=== PATIENT | male | born 1975 | race Caucasian/White ===

== ENCOUNTER → 2016-04-17 | Day surgery (SDC) | payer OTHER ==
[~2016-04-17] MED LIST: ACETAMINOPHEN PO; ASPIRIN81 M2 PO; ATIVAN PO; AUGMENTIN875 MG PO; BACTRIM DS TABL1 TA1 PO; CALTRATE PLUS T1 TA1 PO; CIPRO PO; CITRACAL + D CA1 TA1 PO; DICLOFENAC PO; DITROPAN PO; DITROPAN5 MG PO; EXCEDRIN EXTRA1 TAB PO; FLEXERIL10 M1 PO; FLEXERIL10 MG PO; FLOMAX0.4 M1 PO; HYDROCODON-ACE1 EACH PO; LORTAB 5-325 M1 EACH PO; LORTAB 5/500 TA1 TA1 PO; NO MEDICATIONS; OMEPRAZOLE20 M2 PO; OXECTA7.5 MG PO; PERCOCET 5-3251 TAB PO; PERCOCET5/325 PO; PHENERGAN PO; PHENERGAN PR; PHENERGAN25 M1 PO; PHENERGAN25 MG PO; PYRIDIUM PO; PYRIDIUM100 MG PO; TRAMADOL HCL50 M1 PO; ULTRAM PO; UROCIT K PO; VENLAFAXINE H37.5 MG PO; VICODIN 5/1 TAB 5/50 PO; VICODIN ES 7.51 EACH PO; VOLTAREN75 MG PO
--- NOTE | ~2016-04-17 | OR ---
Unit #: [id number] #: [id number] Patient: QUINCY CONNER [id number] [address] [address] [id number] O MR#: [id number] NAME: QUINCY CONNER. ROOM: Date of Procedure: 04/17/2016 Admission Date: 04/17/2016 Surgeon: William Grant M.D. : 1975 Attending Physician: William Grant M.D. Primary Care Physician: Sarah Alvarado M.D. OPERATIVE REPORT PREOPERATIVE DIAGNOSIS Right inguinal hernia. POSTOPERATIVE DIAGNOSIS Incarcerated indirect right inguinal hernia. PROCEDURE PERFORMED Laparoscopic inguinal hernia repair of incarcerated indirect right inguinal hernia. 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 ANESTHESIA General endotracheal anesthesia. ESTIMATED BLOOD LOSS Minimal. IV FLUIDS 800 crystalloid. COMPLICATIONS None. INDICATIONS FOR PROCEDURE The patient is a 41-year-old with right inguinal hernia. DESCRIPTION OF PROCEDURE The patient was taken to the operative theater and placed in supine position. General anesthesia was induced. The abdomen was prepped and draped. Infraumbilical incision was then made. A small incision was made on the anterior sheath, created a preperitoneal space with blunt dissection. A Veress needle was placed intra-abdominally. The abdomen was insufflated to 15 mmHg with CO2. Under direct vision, I placed a 5-mm port. The patient was placed in Trendelenburg. I identified an incarcerated right indirect inguinal hernia. This was reduced with gentle external manipulation. I did not see a left-sided hernia. I then released the pneumoperitoneum. Using the AutoSuture balloon dissection system, I created the preperitoneal space in the right side only. I placed two 5-mm ports in the midline. I dissected the right groin, identifying the lateral space. The cord was skeletonized. The hernia sac Unit #: [id number] #: [id number] Patient: QUINCY CONNER from the cord contents, transected and an Endoloop placed along the proximal sac and the hernia reduced. I identified David's ligament. I placed a large 3DMax into position. This was held in place with a tacking device to David ligament as well as lateral anterior musculature. This covered the direct and indirect spaces nicely. Hemostasis was adequate. I released the pneumopreperitoneum with care taken to avoid the peritoneum sliding posterior to the mesh. I then removed the ports. The fascia was closed with 0 Vicryl and skin with 4-0 Vicryl. The patient tolerated the procedure well and sent to the recovery room in good condition. Dictated by... Popeye Morales/alexis TD: 04/18/2016 05:03 JOB #: [id number] OPERATIVE REPORT X William Grant MD X PROCEDURE OPERATIVE NOTE
== END | disposition home or self-care (01) ==
LOC: CSUR 06:59
DX: K40.30 Unilateral inguinal hernia, with obstruction, without gangrene, not specified as recurrent (principal); K21.9 Gastro-esophageal reflux disease without esophagitis; F17.210 Nicotine dependence, cigarettes, uncomplicated; Z87.442 Personal history of urinary calculi; Z88.8 Allergy status to other drugs, medicaments and biological substances; Z79.82 Long term (current) use of aspirin; Z79.899 Other long term (current) drug therapy; Z98.890 Other specified postprocedural states
CPT/HCPCS: C1781; J0330; J0690; J1100; J1644; J2250; J2270; J2405; J3010

== ENCOUNTER 2016-05-11 15:08 | Emergency (ER) | payer OTHER ==
--- NOTE | ~2016-05-11 | EKG ---
PATIENT: QUINCY CONNER UNIT #: [id number] Ventricular Rate: 116 BPM Atrial Rate: 116 BPM P-R Interval: 122 ms QRS Duration: 70 ms Q-T Interval: 306 ms QTC Calculation(Bezet): 425 ms Calculated R Windsor: 43 degrees Calculated T Windsor: 42 degrees Diagnosis Line: Sinus tachycardia Diagnosis Line: Otherwise normal ECG Diagnosis Line: When compared with ECG of 21-AUG-2014 18:23, Diagnosis Line: No significant change was found Diagnosis Line: Confirmed by TIMOTHY BARRETT MD ([id number]) on Diagnosis Line: 06/08/2016 7:07:04 AM INTERPRETING MDKaci SY
[2016-05-11 15:01] LABS: BASOPHIL# 0.1 X10e3 (0-0.3); BASOPHIL% 1.4 % (0-2.5); EOSINOPHIL# 0.3 X10e3 (0-0.7); EOSINOPHIL% 2.8 % (0.0-7.0); HEMATOCRIT 40.3 % (38.0-50.0); HEMOGLOBIN 13.7 gm/dL (13.0-16.0); LYMPHOCYTE# 2.9 X10e3 (1.0-3.5); LYMPHOCYTE% 30.5 % (17.0-45.0); MEAN CELL VOLUME 95.2 FL (83-96); MEAN CORPUSCULAR HEMOGLOBIN 32.4 PG (28-34); MEAN PLATELET VOLUME 6.5 FL (6.5-11.5); MONOCYTE# 0.4 X10e3 (0-1.0); MONOCYTE% 4.3 % (3.0-12.0); NEUTROPHIL# 5.9 X10e3 (1.5-7.1); PLATELET COUNT 325 X10e3 (140-420); RED BLOOD COUNT 4.24 X10e (3.90-5.60); RED CELL DISTRIBUTION WIDTH 13.1 % (11.0-15.5); WHITE BLOOD COUNT 9.6 X10e3 (4.0-10.5)
[2016-05-11 15:03] LABS: DIFF IND NO
[~2016-05-11 15:08] MED LIST changes: -ATIVAN PO
[2016-05-11 15:17] LABS: ALBUMIN SERUM 4.4 g/dL (3.5-5.0); ALKALINE PHOSPHATASE 62 U/L (32-92); ALT (SGPT) 19 U/L (10-40); AST (SGOT) 36 U/L (10-42); BILIRUBIN, DIRECT 0.1 mg/dL (0.0-0.2); BILIRUBIN,INDIRECT 0.4 mg/dL (0.0-0.9); BILIRUBIN,TOTAL 0.5 mg/dL (0.2-2.0); BLOOD UREA NITROGEN 14 mg/dL (9-23); BUN/CREATININE RATIO 15.55; CARBON DIOXIDE 21 mmol/L (22-31); CHLORIDE 99 mmol/L (100-111); CREATININE SERUM 0.9 mg/dL (0.6-1.4); GLOM FILT RATE Estimated 107.2 mL/min (>60); GLUCOSE FASTING 111 mg/dL (70-110); POTASSIUM 3.7 mmol/L (3.5-5.1); PROTEIN TOTAL SERUM 7.7 g/dL (6.0-8.3); SALICYLATE <4.0 mg/dL; SODIUM 133 mmol/L (135-145)
[2016-05-11 15:18] LABS: ACETAMINOPHEN <10 ug/mL; ALCOHOL BLOOD <5 mg/dL (0)
[2016-05-11 15:22] LABS: AMPHETAMINE POS (NEG); BARBITURATES NEG (NEG); BENZODIAZEPINES NEG (NEG); COCAINE NEG (NEG); MARIJUANA NEG (NEG); OPIATES POS (NEG); TRICYCLIC ANTIDEPRESSANTS NEG (NEG); U METHADONE NEG (NEG)
[2016-05-11 15:27] LABS: URINE SOURCE CLEAN CATCH
[2016-05-11 15:30] LABS: URINE APPEARANCE CLEAR; URINE BILIRUBIN NEG (NEG); URINE BLOOD NEG (NEG); URINE COLOR YELLOW; URINE GLUCOSE NEG (NORM); URINE KETONE NEG (NEG); URINE LEUKOCYTE ESTERASE NEG (NEG); URINE NITRATE NEG (NEG); URINE PROTEIN NEG (NEG); URINE SPECIFIC GRAVITY <=1.005 (1.003-1.035); URINE UROBILINOGEN 0.2 MG/DL (NORM)
[2016-05-11 15:35] LABS: MICRO INDICATED? NO
[2016-05-11] MEDS ORDERED: ATIVAN PO (17:14)
== END 2016-05-11 17:13 | disposition home or self-care (01) ==
LOC: SED 15:08
PROVIDERS: Emergency Medicine
DX: F41.9 Anxiety disorder, unspecified (principal); F19.10 Other psychoactive substance abuse, uncomplicated; F31.9 Bipolar disorder, unspecified; F17.210 Nicotine dependence, cigarettes, uncomplicated; Z88.6 Allergy status to analgesic agent; Z79.899 Other long term (current) drug therapy
CPT/HCPCS: 36415; 80048; 80076; 80307; 81003; 85025; 93005; 96372; 99283; G0480; J3486

== ENCOUNTER → 2016-09-07 | Outpatient (CLI) | payer OTHER ==
[~2016-09-07] MED LIST changes: +ATIVAN PO
--- NOTE | ~2016-09-07 | MR18 ---
[facility] A Service of [facility] RADIOLOGY TEXT RESULTS PATIENT: QUINCY CONNER LOCATION: [facility] : [birth year] UNIT #: [id number] AGE: [address]: Sarah Alvarado MD SEX: M ORDER DR: [id number] [address] [address] [id number] O MR#: [id number] Acc #: [id number] NAME: QUINCY CONNER : 1975 SEX: M STUDY DATE/TIME: 09/07/2016 8:53 UNIT: [facility] ROOM: STUDY DESCRIPTION: MR Brain Wo Contrast Attending Physician: Sarah Alvarado M.D. Referring Physician: Sarah Alvarado M.D. Ordering Physician: Sarah Alvarado M.D. Primary Care Physician: Sarah Alvarado M.D. MRI CENTER REPORT This report is preliminary unless electronic signature is present. EXAM MRI of the brain without contrast dated 09/07/[address] head without contrast dated 08/21/2014. HISTORY 3 episodes of severe headaches the last few years with two in the last three weeks. FINDINGS Multisequence, multiplanar imaging of the brain was obtained without contrast. Age-appropriate parenchymal volume is seen. Less than 5 mm few small hyperintense T2 signal lesions are noted in the white matter particularly in bifrontal lobes in the subcortical regions. No acute stroke, space occupying intracranial mass, mass effect, midline shift or hydrocephalus. Thick slices through the sella with the pituitary gland, pineal region and upper cervical spine are unremarkable. IMPRESSION 1. Less than 5 mm few hyperintense T2 signal lesions are noted in the white matter particularly in bifrontal lobes, likely related to minimal microvascular ischemic change or migraine based on age and statistics. Nonspecific. Dictated by... Segun Eckert M.D. THIS IS AN ELECTRONICALLY VERIFIED REPORT [facility] A Service [facility] RADIOLOGY TEXT RESULTS PATIENT: QUINCY CONNER LOCATION: [facility] : [birth year] UNIT #: [id number] AGE: [address]: Sarah Alvarado MD SEX: M ORDER DR: Segun Eckert M.D. at 09/11/2016 7:32 PM CPR/rnr TD: 09/10/2016 05:38 JOB #: [id number] MRI CENTER REPORT Page 1 of 1
== END | disposition home or self-care (01) ==
LOC: SMRI 08:08
DX: R51 Headache (principal); G93.9 Disorder of brain, unspecified
CPT/HCPCS: 70551

== ENCOUNTER 2016-09-14 03:59 | Emergency (ER) | payer OTHER ==
[~2016-09-14] VITALS: Ht 172.7 cm; Wt 76.2 kg
[2016-09-14 06:03] LABS: URINE SOURCE CLEAN CATCH
[2016-09-14 06:07] LABS: BASOPHIL# 0.1 X10e3 (0-0.3); BASOPHIL% 1.2 % (0-2.5); EOSINOPHIL# 0.3 X10e3 (0-0.7); EOSINOPHIL% 2.5 % (0.0-7.0); HEMATOCRIT 39.4 % (38.0-50.0); HEMOGLOBIN 13.3 gm/dL (13.0-16.0); LYMPHOCYTE# 4.5 X10e3 (1.0-3.5); LYMPHOCYTE% 39.9 % (17.0-45.0); MEAN CELL VOLUME 93.8 FL (83-96); MEAN CORPUSCULAR HEMOGLOBIN 31.7 PG (28-34); MEAN CORPUSCULAR HGB CONC 33.8 g/dL (30-36); MEAN PLATELET VOLUME 6.4 FL (6.5-11.5); MONOCYTE# 0.7 X10e3 (0-1.0); NEUTROPHIL# 5.7 X10e3 (1.5-7.1); NEUTROPHIL% 50.4 % (40-75); PLATELET COUNT 315 X10e3 (140-420); RED CELL DISTRIBUTION WIDTH 13.3 % (11.0-15.5); WHITE BLOOD COUNT 11.2 X10e3 (4.0-10.5)
[2016-09-14 06:08] LABS: DIFF IND NO
[2016-09-14 06:12] LABS: URINE APPEARANCE CLEAR; URINE BILIRUBIN NEG (NEG); URINE BLOOD NEG (NEG); URINE COLOR YELLOW; URINE GLUCOSE NEG (NEG); URINE KETONE NEG (NEG); URINE LEUKOCYTE ESTERASE NEG (NEG); URINE NITRATE NEG (NEG); URINE PH 8.5 (5-8); URINE PROTEIN NEG (NEG); URINE SPECIFIC GRAVITY 1.017 (1.003-1.035); URINE UROBILINOGEN 0.2 MG/DL (NEG)
[2016-09-14 06:17] LABS: CULTURE INDICATED? NO
[2016-09-14 06:33] LABS: ALBUMIN SERUM 4.2 g/dL (3.5-5.0); ALKALINE PHOSPHATASE 58 U/L (32-92); ALT (SGPT) 14 U/L (10-40); AST (SGOT) 17 U/L (10-42); BILIRUBIN, DIRECT 0.1 mg/dL (0.0-0.2); BILIRUBIN,INDIRECT 0.8 mg/dL (0.0-0.9); BILIRUBIN,TOTAL 0.9 mg/dL (0.2-2.0); BLOOD UREA NITROGEN 17 mg/dL (9-23); BUN/CREATININE RATIO 14.16; CALCIUM SERUM 9.2 mg/dL (8.4-10.2); CARBON DIOXIDE 23 mmol/L (22-31); CHLORIDE 105 mmol/L (100-111); CREATININE SERUM 1.2 mg/dL (0.6-1.4); GLOM FILT RATE Estimated 75.7 mL/min (>60); GLUCOSE FASTING 101 mg/dL (70-110); POTASSIUM 3.3 mmol/L (3.5-5.1); PROTEIN TOTAL SERUM 7.2 g/dL (6.0-8.3); SALICYLATE <4.0 mg/dL; SODIUM 137 mmol/L (135-145)
[2016-09-14 06:34] LABS: ACETAMINOPHEN <10 ug/mL; ALCOHOL BLOOD <5 mg/dL (0)
[2016-09-14 06:51] LABS: AMPHETAMINE POS (NEG); BARBITURATES NEG (NEG); BENZODIAZEPINES NEG (NEG); COCAINE NEG (NEG); MARIJUANA NEG (NEG); OPIATES POS (NEG); TRICYCLIC ANTIDEPRESSANTS NEG (NEG); U METHADONE NEG (NEG)
== END 2016-09-14 09:54 | disposition home or self-care (01) ==
LOC: CED 03:59
PROVIDERS: Emergency Medicine
DX: F41.9 Anxiety disorder, unspecified (principal); F15.159 Other stimulant abuse with stimulant-induced psychotic disorder, unspecified; F14.10 Cocaine abuse, uncomplicated; F32.9 Major depressive disorder, single episode, unspecified; F17.210 Nicotine dependence, cigarettes, uncomplicated; Z79.82 Long term (current) use of aspirin; Z79.899 Other long term (current) drug therapy; Z88.6 Allergy status to analgesic agent
CPT/HCPCS: 36415; 80048; 80076; 80307; 81003; 85025; 99284; G0480